=== PATIENT | female | born 1955 | race Caucasian/White ===

== ENCOUNTER 2017-06-09 21:28 | Emergency (ER) | payer SELFPAY ==
[2017-06-09] MEDS ORDERED: Dexamethasone 4 MG TAB ONE (21:57)
[2017-06-09] MEDS ORDERED: Dexamethasone 1 MG TAB ONE (21:57)
[2017-06-09] MEDS ORDERED: Benzonatate 100 MG CAP ONE (21:57)
[2017-06-09] MEDS ORDERED: Ibuprofen 200 MG TAB ONE (22:01)
== END 2017-06-09 22:06 | disposition home or self-care (01) ==
LOC: NAV ERS 21:28
DX: J06.9 Acute upper respiratory infection, unspecified (principal)
CPT/HCPCS: 99283; J8540

== ENCOUNTER → 2019-07-07 | Emergency (ER) | payer MEDICARE, SELFPAY ==
[~2019-07-07] MED LIST: Ketorolac Tromethamine 30 MG/ML VIAL ONE
== END ==
LOC: NAV ERS 12:55
DX: G44.209 Tension-type headache, unspecified, not intractable (principal)
CPT/HCPCS: 96372; 99283; J1885

== ENCOUNTER 2022-09-03 18:32 | Emergency (ER) | payer MEDICAID, OTHER ==
[2022-09-03] MEDS ORDERED: Ketorolac Tromethamine 30 MG/ML VIAL ONE (19:42)
[2022-09-03 19:55] LABS: ALT (SGPT) 20 U/L (8-55); AST (SGOT) 21 U/L (5-34); Albumin 3.8 g/dL (3.4-4.8); Alkaline Phosphatase 72 U/L (40-110); Anion Gap 15 mmol/L (10-20); BUN (Urea Nitrogen) 14 mg/dL (9.8-20.1); Bilirubin, Total 0.5 mg/dL (0.2-1.2); Calc. Creatinine Clearance 0 mL/min (70-130); Calcium 9.4 mg/dL (7.8-10.44); Carbon Dioxide 21 mmol/L (23-31); Chloride 104 mmol/L (98-107); Estimated GFR 80; Globulin 3.3 g/dL (2.4-3.5); Glucose 110 mg/dL (80-115); Potassium 3.7 mmol/L (3.5-5.1); Protein, Total 7.1 g/dL (5.8-8.1); Sodium 136 mmol/L (136-145)
[2022-09-03 19:56] LABS: Bilirubin Negative (Negative); Blood, Urine Moderate (Negative); Glucose, Urine (Dipstick) Negative (Negative); Ketone, Urine Negative (Negative); Leukocyte Moderate (Negative); Nitrite Positive (Negative); Protein, Urine (Dipstick) > or equal to 300 mg/dL (Neg-Trace); Urobilinogen > or = 8.0 mg/dL (Less than 2)
[2022-09-03 19:57] LABS: Clarity Hazy (Clear)
[2022-09-03 19:58] LABS: Bacteria/HPF 2+ HPF (None Seen); CAUTI Indications for Culture Fever or rigors; RBC/HPF 0-3 HPF (0-3); Squamous Epithelial 0-3 HPF (0-3)
[2022-09-03 19:59] LABS: Urine Culture Reflex No No
[2022-09-03 20:22] LABS: #Lymphocytes 0.9 thou/uL (1.20-3.40); #Monocytes 0.5 thou/uL (0.11-0.59); #Neutrophils 5.8 thou/uL (1.40-6.50); %Basophils 0.5 % (0.0-1.0); %Eosinophils 0.4 % (0.0-10.0); %Lymphocytes 12.8 % (21.0-51.0); %Monocytes 6.7 % (0.0-10.0); %Neutrophils 79.6 % (42.0-75.0); Hemoglobin 12.3 g/dL (12.0-16.0); Mean Corpuscular HGB CONC 31.4 g/dL (32.0-36.0); Mean Corpuscular Hemoglobin 26.9 pg (27.0-31.0); Mean Corpuscular Volume 85.7 fl (78.0-98.0); Mean Platelet Volume 8.3 fL (7.4-10.4); Platelet Count 194 10x3/uL (130-400); RBC Distribution Width 14.5 % (11.5-14.5); Red Blood Cell (RBC) Count 4.59 mill/uL (4.20-5.40); White Blood Cell (WBC) Count 7.3 10x3/uL (4.8-10.8)
== END 2022-09-03 21:25 | disposition home or self-care (01) ==
LOC: NAV ERS 18:32
DX: M25.512 Pain in left shoulder (principal); R00.0 Tachycardia, unspecified; Z20.822 Contact with and (suspected) exposure to COVID-19
CPT/HCPCS: 71045; 80053; 81001; 83605; 85025; 87635; 93005; 96372; J1885